=== PATIENT | male | born 1950 | race Caucasian/White ===

== ENCOUNTER 2024-05-16 09:49 | Day surgery (SDC) | payer MEDICARE, BC, SELFPAY ==
[2024-05-15 09:42] VITALS: BMI 19.9
--- NOTE | 2024-05-15 11:58 | HO.ANESPROP2 ---
Documented by User: Angelina Wilkins NP 05/15/24 12:02 HPI - Anesthesia Eval Consult details Narrative: 73yo M for Bilateral Medial Rectus Eye Muscle Recession, Left Inferior Rectus Resection Eliquis for afib Pacer in situ - Interrogation 03/2024 requested from Cardiology [facility] Past Medical History Medical History (Updated 05/16/24 @ 10:46 by uEgenie Cronin RN) Pacemaker Atrial fibrillation History of Mohs micrographic surgery for skin cancer History of esophageal dilatation Colon polyp Median arcuate ligament syndrome Lumbar spondylosis Insomnia Hepatitis C Difficulty swallowing Murmur Iritis Foot pain, bilateral Diverticula of intestine Cardiac pacemaker Atrial fibrillation Arthritis Allergic rhinitis Surgical History Surgical History (Updated 05/16/24 @ 10:56 by Eugenie Cronin RN) Hx of exploratory laparotomy Hx of cataract surgery Social History Social History Are you a primary child care sitter to a significant other at home: No Do you presently have visiting nurse or other home services: No Patient Tobacco Use Status: Former Tobacco user Use of substances other than those prescribed or required for medical reasons: No Advance Directives: No Advance Directives Information Provided: Yes Advance Directives on File: No Recently lost weight without trying: No Eating poorly because of decreased appetite: No Nutrition Risks: No Nutritional Risk Meds Allergies Allergy/AdvReac Type Severity Reaction Status Date / Time Iodinated Contrast Media Allergy Hives Verified 05/15/24 09:40 [Contrast Dye] Home Medications ?Medication ?Instructions ?Recorded ?Confirmed ?Last Taken ?Type apixaban 5 mg tablet (Eliquis) 5 mg PO BID 05/15/24 05/15/24 05/15/24 History cholecalciferol (vitamin D3) 50 50 mcg PO DAILY 05/15/24 05/15/24 Unknown History mcg (2,000 unit) capsule (Vitamin D3) finasteride 5 mg tablet 5 mg PO DAILY 05/15/24 05/15/24 Unknown History metoprolol tartrate 25 mg tablet 25 mg PO DAILY 05/15/24 05/15/24 Unknown History Exam Height,Weight and Vital Signs: Height 5 ft 10.87 in Weight 64.6 kg Pertinent Lab Results Pertinent Lab Results: Lab Results Test Name Test Result Date/Time WBC5.6 x10E3/uL03/28/2024 15:09 EDT Hgb13.9 g/dL03/28/2024 15:09 EDT Platelet Yvyiu106 x10E3/uL03/28/2024 15:09 EDT Jeydpy706 mmol/L03/28/2024 15:09 EDT Potassium4.3 mmol/L03/28/2024 15:09 EDT Glucose Level91 mg/dL03/28/2024 15:09 EDT BUN20 mg/dL03/28/2024 15:09 EDT Creatinine-Blood0.82 mg/dL03/28/2024 15:09 EDT Estimated GFR Dclxwggndf12 ML/MIN/1.73 M203/28/2024 15:09 EDT Alkaline Azrudcozjhv28 IU/L03/28/2024 15:09 EDT AST (SGOT)21 IU/L03/28/2024 15:09 EDT ALT (SGPT)13 IU/L03/28/2024 15:09 EDT TSH1.490 uIU/mL03/28/2024 15:09 EDT Free T41.38 ng/dL03/28/2024 15:09 EDT Narrative Narrative: EKG 03/2024 Ventricular Rate: 67 ?BPM Atrial Rate: 67 ?BPM P-R Interval: 198 ?ms QRS Duration: 90 ?ms Q-T Interval: 384 ?ms QTC Calculation(Bazett): 405 ?ms P [place]: 69 ?degrees R [place]: 9 ?degrees T [place]: 60 ?degrees Atrial-paced rhythm with occasional ventricular-paced complexes and Premature atrial complexes Abnormal ECG When compared with ECG of 08-MAR-2024 13:02, Premature atrial complexes are now Present Vent. rate has decreased BY ? 2 BPM Confirmed by KIMBERLY KC MD ([id number]) on 03/10/2024 7:34:24 PM Assessment and Plan Assessment Anesthesia Assessment: Chart Reviewed Documented by User: Antonina Aguilar MD 05/16/24 13:08 [facility] Past Medical History Medical History (Updated 05/16/24 @ 10:46 by Eugenie Cronin RN) Pacemaker Atrial fibrillation History of Mohs micrographic surgery for skin cancer History of esophageal dilatation Colon polyp Median arcuate ligament syndrome Lumbar spondylosis Insomnia Hepatitis C Difficulty swallowing Murmur Iritis Foot pain, bilateral Diverticula of intestine Cardiac pacemaker Atrial fibrillation Arthritis Allergic rhinitis Surgical History Surgical History (Updated 05/16/24 @ 10:56 by Eugenie Cronin RN) Hx of exploratory laparotomy Hx of cataract surgery History of Problems with Anesthesia: No Social History Social History Are you a primary child care sitter to a significant other at home: No Do you presently have visiting nurse or other home services: No Patient Tobacco Use Status: Former Tobacco user Use of substances other than those prescribed or required for medical reasons: No Advance Directives: No Advance Directives Information Provided: Yes Advance Directives on File: No Recently lost weight without trying: No Eating poorly because of decreased appetite: No Nutrition Risks: No Nutritional Risk Meds Allergies Allergy/AdvReac Type Severity Reaction Status Date / Time Iodinated Contrast Media Allergy Hives Verified 05/15/24 09:40 [Contrast Dye] Home Medications ?Medication ?Instructions ?Recorded ?Confirmed ?Last Taken ?Type apixaban 5 mg tablet (Eliquis) 5 mg PO BID 05/15/24 05/15/24 05/15/24 History cholecalciferol (vitamin D3) 50 50 mcg PO DAILY 05/15/24 05/15/24 Unknown History mcg (2,000 unit) capsule (Vitamin D3) finasteride 5 mg tablet 5 mg PO DAILY 05/15/24 05/15/24 Unknown History metoprolol tartrate 25 mg tablet 25 mg PO DAILY 05/15/24 05/15/24 Unknown History Exam Airway Mallampati Class: III TM Dist: >3cm Neck ROM: Limited Loose/Missing/Broken Teeth: No Heart: RRR Lungs: CTA Assessment and Plan Assessment Anesthesia Assessment: Anesthesia Plan Discussed Final Anesthetic Review History of Problems with Anesthesia: No NPO: Yes ASA Class: III Final Preanesthetic Review: Meds/Allgs Chart Reviewed, Consent Obtained/Reviewed and Anes Risks/Benef Reviewed Patient Risk: Intermediate Procedure Risk: Low Anesthetic Plan Anesthetic Plan: GA Disposition: Standard PACU
[2024-05-16 10:54] VITALS: BMI 19.7
[2024-05-16 11:17] VITALS: BP 131/68; PULSE 78; RESP 16; TEMP 36.3; O2SAT 98
[2024-05-16] MEDS: Lactated Ringers 1,000 ML 100 ML IVCONT (11:26)
[2024-05-16 14:12] VITALS: BP 151/75; PULSE 69; RESP 18; TEMP 36.2; O2SAT 100
--- NOTE | 2024-05-16 14:12 | HO.OPHTHAL ---
Ophthalmology Operative Note Date of Service: 05/16/24 Narrative: Diagnosis 1. Esotropia 2. Right hypertropia. Procedures 1. Bilateral medial rectus recessions of 3.5 mm. 2. Recession of left inferior rectus [address] Parra. Anesthesia general. Complications none. The patient was brought the operating room placed under general anesthesia. The eyes were prepped and draped in the usual sterile ophthalmic fashion. A lid speculum was placed in the right eye and a peritomy was created around the medial rectus muscle. The muscle was hooked and secured with a double-armed Vicryl suture. It was disinserted from the globe and reattached to a position 3.5 mm behind the original insertion. Conjunctiva was closed with interrupted Vicryl sutures. An identical procedure was then performed on the left eye. A peritomy was then created around the left inferior rectus muscle. The muscle was hooked and secured with a double-armed Vicryl suture. It was disinserted from the globe and reattached to a position 1 mm behind the original insertion. Conjunctiva was closed with interrupted Vicryl sutures. The patient was then awoken from general anesthesia and discharged to postoperative recovery in good condition.
[2024-05-16 14:17] VITALS: BP 143/73; PULSE 60; RESP 16; O2SAT 100
[2024-05-16 14:22] VITALS: BP 148/79; PULSE 62; RESP 16; O2SAT 100
[2024-05-16 14:27] VITALS: BP 158/72; PULSE 61; RESP 18; O2SAT 99
[2024-05-16 14:42] VITALS: BP 158/84; PULSE 65; RESP 18; O2SAT 99
== END 2024-05-16 15:31 | disposition home or self-care (01) ==
PROVIDERS: PCP Internal Medicine; Visit Provider Ophthalmology
PROC: (CPT 67311; principal; 2024-05-16 12:20)
DX: H53.2 Diplopia (principal); H50.00 Unspecified esotropia; H50.21 Vertical strabismus, right eye; Z86.69 Personal history of other diseases of the nervous system and sense organs; I48.91 Unspecified atrial fibrillation; R01.1 Cardiac murmur, unspecified; I77.4 Celiac artery compression syndrome; Z86.19 Personal history of other infectious and parasitic diseases; Z79.01 Long term (current) use of anticoagulants; Z79.899 Other long term (current) drug therapy; Z91.041 Radiographic dye allergy status; Z87.891 Personal history of nicotine dependence; Z98.890 Other specified postprocedural states
CPT/HCPCS: 67311; 67314; J0131; J1100; J1885; J2003; J2405; J2704; J3010